=== PATIENT | male | born 1990 | race Caucasian/White ===

== ENCOUNTER 2018-06-12 23:05 | Emergency (ER) | payer SELFPAY ==
[~2018-06-12 23:05] MED LIST: AMOXICILLIN500 MG PO; CORTISPORIN SUS10 ML OT; HYDROCODONE BIT1 T11 PO; MOTRIN800 MG PO; NORCO 325 MG-51 TAB PO; VOLTAREN75 MG PO
[2018-06-12 23:09] VITALS: BP 153/86
== END 2018-06-13 01:18 | disposition home or self-care (01) ==
LOC: ED 23:05
DX: M25.512 Pain in left shoulder (principal); R07.81 Pleurodynia; R07.9 Chest pain, unspecified; Z88.1 Allergy status to other antibiotic agents; Z79.1 Long term (current) use of non-steroidal anti-inflammatories (NSAID); Z90.49 Acquired absence of other specified parts of digestive tract; X50.9XXA Other and unspecified overexertion or strenuous movements or postures, initial encounter; Y93.89 Activity, other specified; Y92.89 Other specified places as the place of occurrence of the external cause; Y99.8 Other external cause status

== ENCOUNTER 2019-03-11 22:53 | Emergency (ER) | payer OTHER ==
[~2019-03-11] VITALS: Ht 167.6 cm; Wt 74.8 kg
[2019-03-11 22:56] VITALS: BP 127/83
== END 2019-03-12 00:01 | disposition left against medical advice (07) ==
LOC: ED 22:53
DX: M25.511 Pain in right shoulder (principal); Z88.1 Allergy status to other antibiotic agents; V47.6XXA Car passenger injured in collision with fixed or stationary object in traffic accident, initial encounter; Y93.89 Activity, other specified; Y92.413 State road as the place of occurrence of the external cause; Y99.8 Other external cause status